=== PATIENT | female | born 1980 | race Caucasian/White ===

== ENCOUNTER → 2024-06-09 11:31 | Outpatient (REF) | payer BC, SELFPAY | LOC: WDC 11:31 | PROVIDERS: ATTENDING PHYSICIAN Nurse Practitioner | DX: Z12.31 Encounter for screening mammogram for malignant neoplasm of breast (principal) | CPT/HCPCS: 77063; 77067 ==

== ENCOUNTER → 2024-10-03 09:10 | Outpatient (REF) | payer BC, SELFPAY | LOC: WDC 09:10 | PROVIDERS: ATTENDING PHYSICIAN Hospitalist | DX: N63.12 Unspecified lump in the right breast, upper inner quadrant (principal) | CPT/HCPCS: 76642; 77061; 77065 ==

== ENCOUNTER → 2025-06-12 12:16 | Outpatient (REF) | payer BC, SELFPAY | LOC: WDC 12:16 | PROVIDERS: ATTENDING PHYSICIAN Hospitalist | DX: Z12.31 Encounter for screening mammogram for malignant neoplasm of breast (principal) | CPT/HCPCS: 77063; 77067 ==